=== PATIENT | female | born 1945 | race African-American/Black ===

== ENCOUNTER → 2017-01-12 | Outpatient (CLI) | payer MEDICARE ==
--- NOTE | 2017-01-12 11:36 | FL ---
EXAMINATION TYPE: FL UGI air w esophagus DATE OF EXAM: 01/12/2017 COMPARISON: CT abdomen and pelvis January 01, 2015. Prior esophagram March 08, 2012. HISTORY: Dysphasia increase in severity for 7 months but has been present since gastric sleeve surger y approximately 4 years ago per patient. TECHNIQUE: A single contrast limited UGI study is performed. A total of 8 seconds of fluoroscopic ti me was utilized during procedure. 19 spot images are taken and saved to PACS system. FINDINGS: Nail Puller image of the abdomen shows clips and sutures from gastric sleeve procedure epigastri c region. There is overall nonobstructive bowel gas pattern. The esophagus shows satisfactory motility and emptying into the stomach. Portion of stomach as above diaphragm consistent with hiatal hernia, this correlates with CT. No significant focal stricture note d. There is mild delay in passage from stomach above diaphragm to below diaphragm and through the pro ximal and distal anastomosis of sleeve. Patient remains asymptomatic. No significant reflux is visual ized. No contrast extravasation to suggest leak is seen. The duodenal bulb, sweep, and proximal small bowel loops are unremarkable. IMPRESSION: No leak or significant obstruction. Images are saved for ordering surgeon. Postsurgical imaging was performed at outside institution and is not available for direct comparison.
[2017-01-12 15:05] LABS: Iron Saturation 23.36 (12.00-45.00)
== END | disposition home or self-care (01) ==
LOC: RADFLWHC 09:45
PROVIDERS: ATTEND Surgery
DX: R13.10 Dysphagia, unspecified (principal); E21.1 Secondary hyperparathyroidism, not elsewhere classified; D50.8 Other iron deficiency anemias; E44.0 Moderate protein-calorie malnutrition; E55.9 Vitamin D deficiency, unspecified
CPT/HCPCS: 36415; 74246; 82306; 82607; 82728; 82746; 83540; 83550; 83970; 84134; 84425; 84443; 84590

== ENCOUNTER → 2017-02-09 | Outpatient (CLI) | payer MEDICARE ==
--- NOTE | 2017-02-09 11:44 | FL ---
EXAMINATION TYPE: FL barium swallow w video DATE OF EXAM: 02/09/2017 MODIFIED SWALLOW / DEGLUTITION STUDY CLINICAL HISTORY: Dysphagia. History of gastric sleeve surgery 4 years ago. TECHNIQUE: Deglutition study is performed utilizing thin liquid barium, honey and nectar thick liqui d barium, barium thick applesauce, and barium coated cracker. A total of 64 seconds of fluoroscopic t nelsy was utilized during procedure. 8 cine sequences were acquired. 0 images are saved to PACS. COMPARISON: None. FINDINGS: The oral and pharyngeal phases show satisfactory initiation and propagation with all modali ties tested. Normal mastication is seen with solid modalities tested. There is no evidence of penet ration or aspiration with any modality tested. No significant pharyngeal residue was appreciated. Mi ld mass effect due to mild multilevel spurring and disc space narrowing lower cervical spine along po sterior wall of proximal esophagus is noted during swallowing. IMPRESSION: No penetration or aspiration observed. Please refer to speech therapist notes for furthe r details if necessary.
== END | disposition home or self-care (01) ==
LOC: RADFLMAIN 10:52
PROVIDERS: ATTEND Surgery
DX: R13.10 Dysphagia, unspecified (principal)
CPT/HCPCS: 74230

== ENCOUNTER → 2017-11-16 | Outpatient (CLI) | payer MEDICARE ==
--- NOTE | 2017-11-16 15:06 | BD ---
EXAMINATION TYPE: Axial Bone Density DATE OF EXAM: 11/16/2017 COMPARISON: 03/25/2014 CLINICAL HISTORY: 72-year-old female OA, postmenopausal screening Height: 61.5 IN Weight: 156 LBS FRAX RISK QUESTIONS: Secondary Osteoporosis: 2. Hyperthyroidism: YES 3. Menopause before 45: YES AGE 28 Rheumatoid Arthritis: YES RISK FACTORS HISTORY OF: Active: YES Diet low in dairy products/other sources of calcium: YES Postmenopausal woman: AGE 28 Take estrogen and/or progesterone medications: NOT NOW How long: TOOK CONTROL OFF AND ON FROM AGE [age] MEDICATIONS: Thyroid Medications: YES Which medication: Levothyroxine How Lon+ YEARS Additional Medications: CALCIUM, LEVOTHYROXINE, DAILY VITAMINS EXAM MEASUREMENTS: Bone mineral densitometry was performed using the [employer] System. Bone mineral density as measured about the Lumbar spine is: ----- L1-L4(G/cm2): 1.279 T Score Values are as follows: ----- L2: 1.2 ----- L3: -0.4 ----- L4: 1.6 ----- L1-L4: 0.8 Bone mineral density has: Increased 2.1% since study of: 03/25/2014 Bone mineral density about the R hip (g/cm2): 1.131 Bone mineral density about the L hip (g/cm2): 1.020 T Score values are as follows: -----R Neck: 0.7 -----L Neck: -0.1 -----R Total: -0.4 -----L Total: -0.5 Bone mineral density has: Decreased -8.2% since study of: 03/25/2014 IMPRESSION: Normal (Values between +1 and -1 indicate normal bone mass). Consider repeating this study in 5 year s or sooner if there is some new clinical indication. NOTE: T-SCORE=SD OF THE YOUNG ADULT MEAN.
--- NOTE | 2017-11-18 10:27 | MM ---
Reason for exam: screening (asymptomatic). Last mammogram was performed 2 years and 10 months ago. History: Patient is postmenopausal. Benign MG stereo VAD BX LT of the left breast, December 10, 2013. Physical Findings: A clinical breast exam by your physician is recommended on an annual basis and results should be correlated with mammographic findings. MG 3D Screening Mammo W/Cad Bilateral CC and MLO view(s) were taken. Prior study comparison: January 01, 2015, bilateral MG 3d screening mammo w/cad. December 03, 2013, left breast MG work up mamm w CAD LT. There are scattered fibroglandular densities. ASSESSMENT: Benign, BI-RAD 2 RECOMMENDATION: Routine screening mammogram of both breasts in 1 year.
== END | disposition home or self-care (01) ==
LOC: RADMAMWWP 13:54
PROVIDERS: ATTEND Family Medicine
DX: Z12.31 Encounter for screening mammogram for malignant neoplasm of breast (principal); M19.90 Unspecified osteoarthritis, unspecified site
CPT/HCPCS: 77063; 77067; 77080

== ENCOUNTER → 2020-02-18 | Outpatient (CLI) | payer MEDICARE ==
--- NOTE | 2020-02-19 09:34 | MM ---
Reason for exam: additional evaluation requested from prior study. Last mammogram was performed 2 years and 3 months ago. History: Patient is postmenopausal. Family history of breast cancer in maternal aunt at age 60. Benign MG stereo VAD BX LT of the left breast, December 10, 2013. Physical Findings: Nurse did not find any significant physical abnormalities on exam. MG 3D Diag Mammo W/Cad KADE Bilateral CC and MLO view(s) were taken. Prior study comparison: November 16, 2017, bilateral MG 3d screening mammo w/cad. January 01, 2015, bilateral MG 3d screening mammo w/cad. There are scattered fibroglandular densities. Previous mammotome biopsy in the left breast. No significant new findings when compared with previous films. These results were verbally communicated with the patient and result sheet given to the patient on 02/18/20. ASSESSMENT: Negative, BI-RAD 1 RECOMMENDATION: Routine screening mammogram of both breasts in 1 year. Manage on a clinical basis with regard to bilateral breast tenderness.
== END | disposition home or self-care (01) ==
LOC: RADMAMWWP 14:31
PROVIDERS: ATTEND Family Medicine
DX: R92.8 Other abnormal and inconclusive findings on diagnostic imaging of breast (principal)
CPT/HCPCS: 77066; G0279; 77062

== ENCOUNTER 2020-05-08 08:12 | Emergency (ER) | payer MEDICARE ==
[2020-05-08] MEDS ORDERED: ACETAMINOPHEN TAB 325 MG TAB PO STA (08:37)
[2020-05-08] MEDS ORDERED: ONDANSETRON 4 MG/2 ML VIAL IVP STA (08:37)
--- NOTE | 2020-05-08 08:38 | ED ---
General Adult HPI - General Chief complaint: Shortness of Breath Stated complaint: cough/weak/nausea/sob Time Seen by Provider: 05/08/20 08:21 Source: patient, RN notes reviewed Mode of arrival: ambulatory Limitations: no limitations - History of Present Illness Initial comments: This is a 75-year-old female presents emergency Department chief complaint of shortness breath, cough congestion weakness. Patient states started 3 weeks ago did. Patient states progressively gotten worse. She states she did get some relief when she took some antibiotics prescribed by her PCP. Patient states she's been fully vaccinated for Covid. Patient states that she has no prior lung disease denies any asthma or COPD. Patient states that her cough is productive with sputum. Patient has no abdominal pain states she's had some nausea associated with dizziness and weakness. No point a chest pain or neck pain or neck stiffness. - Related Data Home Medications Medication Instructions Recorded Confirmed Gabapentin [Neurontin] 600 mg PO BID 01/25/17 05/08/20 LORazepam [Ativan] 1 mg PO BID PRN 01/25/17 05/08/20 Levothyroxine Sodium [Tirosint] 75 mcg PO DAILY 01/25/17 05/08/20 Multivitamin with Iron 2 tab PO DAILY 01/25/17 05/08/20 [Multivitamins with Iron] DULoxetine HCL [Cymbalta] 60 mg PO DAILY 05/08/20 05/08/20 Diltiazem Cd [Cardizem Cd] 240 mg PO DAILY 05/08/20 05/08/20 Omeprazole 40 mg PO DAILY 05/08/20 05/08/20 sulfaSALAzine [Sulfasalazine] 500 mg PO BID 05/08/20 05/08/20 Previous Rx's Medication Instructions Recorded Levofloxacin [Levaquin] 500 mg PO DAILY #7 tab 05/08/20 predniSONE 50 mg PO DAILY #3 tab 05/08/20 Allergies Allergy/AdvReac Type Severity Reaction Status Date / Time hydromorphone [From Dilaudid] AdvReac Unknown Verified 05/08/20 09:40 Review of Systems ROS Statement: Those systems with pertinent positive or pertinent negative responses have been documented in the HPI. ROS Other: All systems not noted in ROS Statement are negative. Past Medical History Past Medical History: Fibromyalgia, GERD/Reflux, Hypertension, Osteoarthritis (OA), Thyroid Disorder History of Any Multi-Drug Resistant Organisms: None Reported Past Surgical History: Appendectomy, Bariatric Surgery, Hysterectomy, Orthopedic Surgery Additional Past Surgical History / Comment(s): bilateral knees Past Anesthesia/Blood Transfusion Reactions: No Reported Reaction Past Psychological History: Anxiety, Depression Smoking Status: Never smoker Past Alcohol Use History: Occasional Past Drug Use History: None Reported General Exam Limitations: no limitations General appearance: alert, in no apparent distress Head exam: Present: atraumatic, normocephalic, normal inspection Eye exam: Present: normal appearance, PERRL, EOMI. Absent: scleral icterus, conjunctival injection, periorbital swelling ENT exam: Present: normal exam, normal oropharynx, mucous membranes moist Neck exam: Present: normal inspection, full ROM. Absent: tenderness, meningismus, lymphadenopathy Respiratory exam: Present: rhonchi (Bilateral throughout). Absent: normal lung sounds bilaterally, respiratory distress, wheezes, rales, stridor Cardiovascular Exam: Present: regular rate, normal rhythm, normal heart sounds. Absent: systolic murmur, diastolic murmur, rubs, gallop, clicks Neurological exam: Present: alert, oriented X3, CN II-XII intact, reflexes normal. Absent: motor sensory deficit Skin exam: Present: warm, dry, intact, normal color. Absent: rash Course Vital Signs 05/08/20 05/08/20 05/08/20 08:13 09:30 10:00 Temperature 99.9 F H Pulse Rate 97 76 77 Respiratory 18 17 18 Rate Blood Pressure 147/86 126/78 134/87 O2 Sat by Pulse 95 94 L 96 Oximetry 05/08/20 05/08/20 05/08/20 10:30 11:00 11:58 Temperature 97.9 F Pulse Rate 75 71 Respiratory 19 20 Rate Blood Pressure 152/99 141/72 O2 Sat by Pulse 95 93 L Oximetry EKG Findings - EKG Comments: EKG Findings:: EKG performed at 8:32 normal sinus rhythm with sinus arrhythmia rate of 98 NE 140 QRS 100 QT/QTC 380/474 Medical Decision Making - Medical Decision Making X-ray,covid and labs are unremarkable. Patient has a upper respiratory infection with low-grade temp. Patient be discharged in stable condition. Return parameters were discussed. - Lab Data Result diagrams: 05/08/20 08:33 05/08/20 08:33 Lab Results 05/08/20 05/08/20 05/08/20 Range/Units 08:33 08:33 08:33 WBC 4.0 (3.8-10.6) k/uL RBC 4.53 (3.80-5.40) m/uL Hgb 12.6 (11.4-16.0) gm/dL Hct 40.2 (34.0-46.0) % MCV 88.7 (80.0-100.0) fL MCH 27.7 (25.0-35.0) pg MCHC 31.3 (31.0-37.0) g/dL RDW 14.2 (11.5-15.5) % Plt Count 284 (150-450) k/uL MPV 7.2 Neutrophils % 45 % Lymphocytes % 34 % Monocytes % 8 % Eosinophils % 10 % Basophils % 1 % Neutrophils # 1.8 (1.3-7.7) k/uL Lymphocytes # 1.4 (1.0-4.8) k/uL Monocytes # 0.3 (0-1.0) k/uL Eosinophils # 0.4 (0-0.7) k/uL Basophils # 0.0 (0-0.2) k/uL Hypochromasia Moderate PT 11.2 (9.0-12.0) sec INR 1.1 (<1.2) APTT 25.4 (22.0-30.0) sec D-Dimer 0.58 (<0.60) mg/L FEU Sodium 139 (137-145) mmol/L Potassium 3.6 (3.5-5.1) mmol/L Chloride 106 (98-107) mmol/L Carbon Dioxide 28 (22-30) mmol/L Anion Gap 5 mmol/L BUN 13 (7-17) mg/dL Creatinine 0.94 (0.52-1.04) mg/dL Est GFR (CKD-EPI)AfAm 69 (>60 ml/min/1.73 sqM) Est GFR (CKD-EPI)NonAf 60 (>60 ml/min/1.73 sqM) Glucose 102 H (74-99) mg/dL Plasma Lactic Acid David (0.7-2.0) mmol/L Calcium 9.1 (8.4-10.2) mg/dL Magnesium 2.0 (1.6-2.3) mg/dL Total Bilirubin 0.7 (0.2-1.3) mg/dL AST 23 (14-36) U/L ALT 7 (4-34) U/L Alkaline Phosphatase 96 (38-126) U/L Troponin I (0.000-0.034) ng/mL NT-Pro-B Natriuret Pep pg/mL Total Protein 6.6 (6.3-8.2) g/dL Albumin 3.5 (3.5-5.0) g/dL Urine Color Urine Appearance (Clear) Urine pH (5.0-8.0) Ur Specific [place] (1.001-1.035) Urine Protein (Negative) Urine Glucose (UA) (Negative) Urine Ketones (Negative) Urine Blood (Negative) Urine Nitrite (Negative) Urine Bilirubin (Negative) Urine Urobilinogen (<2.0) mg/dL Ur Leukocyte Esterase (Negative) Urine RBC (0-5) /hpf Urine WBC (0-5) /hpf Ur Squamous Epith Cells (0-4) /hpf Calcium Oxalate Crystal (None) /hpf Urine Mucus (None) /hpf Coronavirus (PCR) (Not Detectd) 05/08/20 05/08/20 05/08/20 Range/Units 08:33 08:33 08:33 WBC (3.8-10.6) k/uL RBC (3.80-5.40) m/uL Hgb (11.4-16.0) gm/dL Hct (34.0-46.0) % MCV (80.0-100.0) fL MCH (25.0-35.0) pg MCHC (31.0-37.0) g/dL RDW (11.5-15.5) % Plt Count (150-450) k/uL MPV Neutrophils % % Lymphocytes % % Monocytes % % Eosinophils % % Basophils % % Neutrophils # (1.3-7.7) k/uL Lymphocytes # (1.0-4.8) k/uL Monocytes # (0-1.0) k/uL Eosinophils # (0-0.7) k/uL Basophils # (0-0.2) k/uL Hypochromasia PT (9.0-12.0) sec INR (<1.2) APTT (22.0-30.0) sec D-Dimer (<0.60) mg/L FEU Sodium (137-145) mmol/L Potassium (3.5-5.1) mmol/L Chloride (98-107) mmol/L Carbon Dioxide (22-30) mmol/L Anion Gap mmol/L BUN (7-17) mg/dL Creatinine (0.52-1.04) mg/dL Est GFR (CKD-EPI)AfAm (>60 ml/min/1.73 sqM) Est GFR (CKD-EPI)NonAf (>60 ml/min/1.73 sqM) Glucose (74-99) mg/dL Plasma Lactic Acid David 1.2 (0.7-2.0) mmol/L Calcium (8.4-10.2) mg/dL Magnesium (1.6-2.3) mg/dL Total Bilirubin (0.2-1.3) mg/dL AST (14-36) U/L ALT (4-34) U/L Alkaline Phosphatase (38-126) U/L Troponin I <0.012 (0.000-0.034) ng/mL NT-Pro-B Natriuret Pep 451 pg/mL Total Protein (6.3-8.2) g/dL Albumin (3.5-5.0) g/dL Urine Color Urine Appearance (Clear) Urine pH (5.0-8.0) Ur Specific [place] (1.001-1.035) Urine Protein (Negative) Urine Glucose (UA) (Negative) Urine Ketones (Negative) Urine Blood (Negative) Urine Nitrite (Negative) Urine Bilirubin (Negative) Urine Urobilinogen (<2.0) mg/dL Ur Leukocyte Esterase (Negative) Urine RBC (0-5) /hpf Urine WBC (0-5) /hpf Ur Squamous Epith Cells (0-4) /hpf Calcium Oxalate Crystal (None) /hpf Urine Mucus (None) /hpf Coronavirus (PCR) (Not Detectd) 05/08/20 05/08/20 Range/Units 08:33 11:33 WBC (3.8-10.6) k/uL RBC (3.80-5.40) m/uL Hgb (11.4-16.0) gm/dL Hct (34.0-46.0) % MCV (80.0-100.0) fL MCH (25.0-35.0) pg MCHC (31.0-37.0) g/dL RDW (11.5-15.5) % Plt Count (150-450) k/uL MPV Neutrophils % % Lymphocytes % % Monocytes % % Eosinophils % % Basophils % % Neutrophils # (1.3-7.7) k/uL Lymphocytes # (1.0-4.8) k/uL Monocytes # (0-1.0) k/uL Eosinophils # (0-0.7) k/uL Basophils # (0-0.2) k/uL Hypochromasia PT (9.0-12.0) sec INR (<1.2) APTT (22.0-30.0) sec D-Dimer (<0.60) mg/L FEU Sodium (137-145) mmol/L Potassium (3.5-5.1) mmol/L Chloride (98-107) mmol/L Carbon Dioxide (22-30) mmol/L Anion Gap mmol/L BUN (7-17) mg/dL Creatinine (0.52-1.04) mg/dL Est GFR (CKD-EPI)AfAm (>60 ml/min/1.73 sqM) Est GFR (CKD-EPI)NonAf (>60 ml/min/1.73 sqM) Glucose (74-99) mg/dL Plasma Lactic Acid David (0.7-2.0) mmol/L Calcium (8.4-10.2) mg/dL Magnesium (1.6-2.3) mg/dL Total Bilirubin (0.2-1.3) mg/dL AST (14-36) U/L ALT (4-34) U/L Alkaline Phosphatase (38-126) U/L Troponin I (0.000-0.034) ng/mL NT-Pro-B Natriuret Pep pg/mL Total Protein (6.3-8.2) g/dL Albumin (3.5-5.0) g/dL Urine Color Yellow Urine Appearance Cloudy H (Clear) Urine pH 6.0 (5.0-8.0) Ur Specific [place] 1.020 (1.001-1.035) Urine Protein Trace H (Negative) Urine Glucose (UA) Negative (Negative) Urine Ketones Negative (Negative) Urine Blood Negative (Negative) Urine Nitrite Negative (Negative) Urine Bilirubin Negative (Negative) Urine Urobilinogen 2.0 (<2.0) mg/dL Ur Leukocyte Esterase Moderate H (Negative) Urine RBC 1 (0-5) /hpf Urine WBC 9 H (0-5) /hpf Ur Squamous Epith Cells 7 H (0-4) /hpf Calcium Oxalate Crystal Occasional H (None) /hpf Urine Mucus Occasional H (None) /hpf Coronavirus (PCR) Not Detected (Not Detectd) Disposition Clinical Impression: Upper respiratory infection, Fever Disposition: HOME SELF-CARE Condition: Stable Instructions (If sedation given, give patient instructions): Upper Respiratory Infection (ED) Additional Instructions: Please return to the Emergency Department if symptoms worsen or any other concerns. Prescriptions: Levofloxacin [Levaquin] 500 mg PO DAILY #7 tab predniSONE 50 mg PO DAILY #3 tab Is patient prescribed a controlled substance at d/c from ED?: No Referrals: Humphrey Mujica DO [Primary Care Provider] - 1-2 days Time of Disposition: 12:25
[2020-05-08 08:58] LABS: Basophils % (A) 1 %; Eosinophils # (A) 0.4 k/uL (0-0.7); Eosinophils % (A) 10 %; HCT 40.2 % (34.0-46.0); HGB 12.6 gm/dL (11.4-16.0); Hypochromasia Moderate; Lymphocytes # (A) 1.4 k/uL (1.0-4.8); Lymphocytes % (A) 34 %; MCH 27.7 pg (25.0-35.0); MCHC 31.3 g/dL (31.0-37.0); MCV 88.7 fL (80.0-100.0); Mean Platelet Volume 7.2; Monocytes # (A) 0.3 k/uL (0-1.0); Monocytes % (A) 8 %; Neutrophils # (A) 1.8 k/uL (1.3-7.7); Neutrophils % (A) 45 %; Platelet Count 284 k/uL (150-450); RBC 4.53 m/uL (3.80-5.40); RDW 14.2 % (11.5-15.5)
[2020-05-08 09:12] LABS: D-Dimer 0.58 mg/L FEU (<0.60); INR 1.1 (<1.2); Partial Thromboplastin Time 25.4 sec (22.0-30.0); Prothrombin Time 11.2 sec (9.0-12.0)
[2020-05-08 09:16] LABS: Albumin 3.5 g/dL (3.5-5.0); Calcium 9.1 mg/dL (8.4-10.2); Potassium 3.6 mmol/L (3.5-5.1); Total Bilirubin 0.7 mg/dL (0.2-1.3); Total Protein 6.6 g/dL (6.3-8.2)
--- NOTE | 2020-05-08 09:51 | XR ---
EXAMINATION TYPE: XR chest 2V DATE OF EXAM: 05/08/2020 COMPARISON: NONE HISTORY: Shortness of breath TECHNIQUE: Frontal and lateral views of the chest are obtained. FINDINGS: Scattered senescent parenchymal changes noted. Hyperinflation compatible with COPD. No evidence for infiltrate. No evidence for atelectasis. Heart size is stable. Mediastinal structures are stable and grossly unremarkable. No evidence for hilar prominence. Degenerative changes dorsal spine. IMPRESSION: 1. No evidence for acute pulmonary disease.
[2020-05-08 12:02] VITALS: TEMP 97.9
[2020-05-08 12:19] LABS: Appearance,Urine Cloudy (Clear); Bilirubin,Urine Negative (Negative); Blood,Urine Negative (Negative); Calcium Oxalate Crystals,Urine Occasional /hpf; Color,Urine Yellow; Glucose,Urine (UA) Negative (Negative); Ketones,Urine Negative (Negative); Leukocyte Esterase,Urine Moderate (Negative); Mucus,Urine Occasional /hpf; Nitrite,Urine Negative (Negative); Protein,Urine Trace (Negative); RBC,Urine 1 /hpf (0-5); Squamous Epithelial Cell,Urine 7 /hpf (0-4); WBC,Urine 9 /hpf (0-5)
[2020-05-08] MEDS ORDERED: methylPREDNISolone SOD SUCCI 125 MG/2 ML VIAL IV STA (12:21)
[2020-05-08 12:45] VITALS: BP 133/56; PULSE 72; RESP 18
== END 2020-05-08 12:50 | disposition home or self-care (01) ==
LOC: EC 08:12
DX: J06.9 Acute upper respiratory infection, unspecified (principal); M79.7 Fibromyalgia; K21.9 Gastro-esophageal reflux disease without esophagitis; I10 Essential (primary) hypertension; M19.90 Unspecified osteoarthritis, unspecified site
CPT/HCPCS: 36415; 93005; 85379; 83880; 80053; 83605; 83735; 84484; 85025; 85610; 85730; 81001; 87635; 71046; 99285; 96374; 96375; J2930; J2405

== ENCOUNTER 2020-05-17 13:35 | Emergency (ER) | payer MEDICARE ==
[2020-05-17 13:45] VITALS: TEMP 99
--- NOTE | 2020-05-17 13:49 | ED ---
General Adult HPI - General Chief complaint: Upper Respiratory Infection Stated complaint: Revisit, Hx Pneumonia Time Seen by Provider: 05/17/20 13:48 Source: patient Mode of arrival: ambulatory Limitations: no limitations - History of Present Illness Initial comments: Patient presents to the ED complaining of having a productive cough and dyspnea for the past month or so. Patient states that she was seen in the ED about a week for these symptoms, and she had a negative Covid test done at that time. Patient states that her cough and dyspnea have improved, but she feels more generally weak. Patient denies having any pain, fever or chills, headache, focal neuro deficit, sore throat, chest pain, hemoptysis, palpitations, dizziness, nausea/vomiting/diarrhea, abdominal pain, dysuria or urinary symptoms, decreased urine output, leg or calf swelling or pain, or any other symptoms or complaints. Patient states that she completed her Covid vaccination series over a month ago. - Related Data Home Medications Medication Instructions Recorded Confirmed Gabapentin [Neurontin] 600 mg PO BID 01/25/17 05/17/20 LORazepam [Ativan] 1 mg PO BID PRN 01/25/17 05/17/20 Levothyroxine Sodium [Tirosint] 75 mcg PO DAILY 01/25/17 05/17/20 Multivitamin with Iron 2 tab PO DAILY 01/25/17 05/17/20 [Multivitamins with Iron] DULoxetine HCL [Cymbalta] 60 mg PO DAILY 05/08/20 05/17/20 Diltiazem Cd [Cardizem Cd] 240 mg PO DAILY 05/08/20 05/17/20 Omeprazole 40 mg PO DAILY 05/08/20 05/17/20 sulfaSALAzine [Sulfasalazine] 500 mg PO BID 05/08/20 05/17/20 Previous Rx's Medication Instructions Recorded Benzonatate [Tessalon Perles] 100 mg PO TID PRN #10 cap 05/17/20 Allergies Allergy/AdvReac Type Severity Reaction Status Date / Time hydromorphone [From Dilaudid] AdvReac Unknown Verified 05/17/20 14:31 Review of Systems ROS Statement: Those systems with pertinent positive or pertinent negative responses have been documented in the HPI. ROS Other: All systems not noted in ROS Statement are negative. Past Medical History Past Medical History: Fibromyalgia, GERD/Reflux, Hypertension, Osteoarthritis (OA), Thyroid Disorder History of Any Multi-Drug Resistant Organisms: None Reported Past Surgical History: Appendectomy, Bariatric Surgery, Hysterectomy, Orthopedic Surgery Additional Past Surgical History / Comment(s): bilateral knees Past Anesthesia/Blood Transfusion Reactions: No Reported Reaction Past Psychological History: Anxiety, Depression Smoking Status: Never smoker Past Alcohol Use History: Occasional Past Drug Use History: None Reported General Exam Limitations: no limitations General appearance: alert, in no apparent distress Head exam: Present: atraumatic, normocephalic Eye exam: Present: normal appearance, EOMI ENT exam: Present: normal oropharynx, mucous membranes moist Neck exam: Present: other (Trachea is in midline) Respiratory exam: Present: normal lung sounds bilaterally. Absent: respiratory distress, wheezes, rales, rhonchi, stridor Cardiovascular Exam: Present: regular rate, normal rhythm, normal heart sounds, other (Normal radial pulses bilaterally) GI/Abdominal exam: Present: soft. Absent: distended, tenderness, guarding Extremities exam: Present: other (Negative Homans sign bilaterally). Absent: tenderness, pedal edema, calf tenderness Neurological exam: Present: alert, oriented X3. Absent: motor sensory deficit Psychiatric exam: Present: normal affect, normal mood Skin exam: Present: warm, dry, intact, normal color Course Vital Signs 05/17/20 05/17/20 05/17/20 13:43 14:05 15:19 Temperature 99 F Pulse Rate 106 H 73 Respiratory 20 16 18 Rate Blood Pressure 125/80 145/93 O2 Sat by Pulse 96 98 Oximetry - Reevaluation(s) Reevaluation #1: 05/17/20 15:35 Patient denies development of any new symptoms while in the ED. Patient's tachycardia has now resolved. Patient remains alert and breathing comfortably with clear breath sounds bilaterally and a normal room air oxygen saturation. Patient is aware of her test results, she feels comfortable going home at this time. Patient was counseled about acute bronchitis, and she was clearly explained return and follow-up instructions. Patient was instructed to have a low threshold for return to the ED should her symptoms worsen. Patient was also instructed to follow up closely with her primary care provider. Patient feels comfortable with this plan. EKG Findings - EKG Comments: EKG Findings:: Sinus tachycardia, ventricular rate of 103 bpm, no ectopy, normal VA and QRS intervals, normal QT interval, moderate voltage criteria for LVH, normal axis, no ST or T-wave abnormality Medical Decision Making - Medical Decision Making Patient is afebrile and without leukocytosis. Patient is breathing comfortably in the ED with a normal room air oxygen saturation. Patient's d-dimer, troponin and BNP are within normal limits. The rest of the patient's labs are also fairly unremarkable. Patient's chest x-ray only shows mild atelectasis and does not show any focal infiltrate. Patient states that she recently completed a course of prednisone and Levaquin. I do not feel that any further antibiotic treatment is indicated. Will provide the patient with a prescription for Tessalon Perles for symptomatic relief of her cough. Patient was instructed to, and agrees to, follow up closely with her primary care provider. Will discharge patient home at this time. - Lab Data Result diagrams: 05/17/20 13:54 05/17/20 13:54 Lab Results 05/17/20 05/17/20 05/17/20 Range/Units 13:54 13:54 13:54 WBC 6.3 (3.8-10.6) k/uL RBC 4.47 (3.80-5.40) m/uL Hgb 12.7 (11.4-16.0) gm/dL Hct 39.8 (34.0-46.0) % MCV 89.0 (80.0-100.0) fL MCH 28.4 (25.0-35.0) pg MCHC 31.9 (31.0-37.0) g/dL RDW 14.3 (11.5-15.5) % Plt Count 256 (150-450) k/uL MPV 7.2 Neutrophils % 65 % Lymphocytes % 21 % Monocytes % 7 % Eosinophils % 5 % Basophils % 1 % Neutrophils # 4.1 (1.3-7.7) k/uL Lymphocytes # 1.3 (1.0-4.8) k/uL Monocytes # 0.4 (0-1.0) k/uL Eosinophils # 0.3 (0-0.7) k/uL Basophils # 0.0 (0-0.2) k/uL Hypochromasia Moderate PT 11.5 (9.0-12.0) sec INR 1.1 (<1.2) APTT 24.6 (22.0-30.0) sec D-Dimer 0.57 (<0.60) mg/L FEU Sodium 136 L (137-145) mmol/L Potassium 4.1 (3.5-5.1) mmol/L Chloride 105 (98-107) mmol/L Carbon Dioxide 29 (22-30) mmol/L Anion Gap 2 mmol/L BUN 17 (7-17) mg/dL Creatinine 1.03 (0.52-1.04) mg/dL Est GFR (CKD-EPI)AfAm 62 (>60 ml/min/1.73 sqM) Est GFR (CKD-EPI)NonAf 53 (>60 ml/min/1.73 sqM) Glucose 91 (74-99) mg/dL Plasma Lactic Acid David (0.7-2.0) mmol/L Calcium 8.7 (8.4-10.2) mg/dL Total Bilirubin 0.6 (0.2-1.3) mg/dL AST 20 (14-36) U/L ALT 6 (4-34) U/L Alkaline Phosphatase 81 (38-126) U/L Troponin I (0.000-0.034) ng/mL NT-Pro-B Natriuret Pep pg/mL Total Protein 5.8 L (6.3-8.2) g/dL Albumin 3.1 L (3.5-5.0) g/dL Coronavirus (PCR) (Not Detectd) 05/17/20 05/17/20 05/17/20 Range/Units 13:54 13:54 13:54 WBC (3.8-10.6) k/uL RBC (3.80-5.40) m/uL Hgb (11.4-16.0) gm/dL Hct (34.0-46.0) % MCV (80.0-100.0) fL MCH (25.0-35.0) pg MCHC (31.0-37.0) g/dL RDW (11.5-15.5) % Plt Count (150-450) k/uL MPV Neutrophils % % Lymphocytes % % Monocytes % % Eosinophils % % Basophils % % Neutrophils # (1.3-7.7) k/uL Lymphocytes # (1.0-4.8) k/uL Monocytes # (0-1.0) k/uL Eosinophils # (0-0.7) k/uL Basophils # (0-0.2) k/uL Hypochromasia PT (9.0-12.0) sec INR (<1.2) APTT (22.0-30.0) sec D-Dimer (<0.60) mg/L FEU Sodium (137-145) mmol/L Potassium (3.5-5.1) mmol/L Chloride (98-107) mmol/L Carbon Dioxide (22-30) mmol/L Anion Gap mmol/L BUN (7-17) mg/dL Creatinine (0.52-1.04) mg/dL Est GFR (CKD-EPI)AfAm (>60 ml/min/1.73 sqM) Est GFR (CKD-EPI)NonAf (>60 ml/min/1.73 sqM) Glucose (74-99) mg/dL Plasma Lactic Acid David 1.0 (0.7-2.0) mmol/L Calcium (8.4-10.2) mg/dL Total Bilirubin (0.2-1.3) mg/dL AST (14-36) U/L ALT (4-34) U/L Alkaline Phosphatase (38-126) U/L Troponin I <0.012 (0.000-0.034) ng/mL NT-Pro-B Natriuret Pep 154 pg/mL Total Protein (6.3-8.2) g/dL Albumin (3.5-5.0) g/dL Coronavirus (PCR) (Not Detectd) 05/17/20 Range/Units 13:54 WBC (3.8-10.6) k/uL RBC (3.80-5.40) m/uL Hgb (11.4-16.0) gm/dL Hct (34.0-46.0) % MCV (80.0-100.0) fL MCH (25.0-35.0) pg MCHC (31.0-37.0) g/dL RDW (11.5-15.5) % Plt Count (150-450) k/uL MPV Neutrophils % % Lymphocytes % % Monocytes % % Eosinophils % % Basophils % % Neutrophils # (1.3-7.7) k/uL Lymphocytes # (1.0-4.8) k/uL Monocytes # (0-1.0) k/uL Eosinophils # (0-0.7) k/uL Basophils # (0-0.2) k/uL Hypochromasia PT (9.0-12.0) sec INR (<1.2) APTT (22.0-30.0) sec D-Dimer (<0.60) mg/L FEU Sodium (137-145) mmol/L Potassium (3.5-5.1) mmol/L Chloride (98-107) mmol/L Carbon Dioxide (22-30) mmol/L Anion Gap mmol/L BUN (7-17) mg/dL Creatinine (0.52-1.04) mg/dL Est GFR (CKD-EPI)AfAm (>60 ml/min/1.73 sqM) Est GFR (CKD-EPI)NonAf (>60 ml/min/1.73 sqM) Glucose (74-99) mg/dL Plasma Lactic Acid David (0.7-2.0) mmol/L Calcium (8.4-10.2) mg/dL Total Bilirubin (0.2-1.3) mg/dL AST (14-36) U/L ALT (4-34) U/L Alkaline Phosphatase (38-126) U/L Troponin I (0.000-0.034) ng/mL NT-Pro-B Natriuret Pep pg/mL Total Protein (6.3-8.2) g/dL Albumin (3.5-5.0) g/dL Coronavirus (PCR) Not Detected (Not Detectd) - Radiology Data Radiology results: report reviewed (Chest x-ray: Mild subsegmental atelectasis on the left side improved compared to old exam, normal heart) Disposition Clinical Impression: Acute bronchitis Disposition: HOME SELF-CARE Condition: Stable Instructions (If sedation given, give patient instructions): Acute Bronchitis (ED) Additional Instructions: Return to the ER immediately should you develop increased shortness of breath, a high fever, chest pain, feeling dizzy or faint, or new or worsening symptoms. Follow up closely with your primary care provider. Prescriptions: Benzonatate [Tessalon Perles] 100 mg PO TID PRN #10 cap PRN Reason: Cough Is patient prescribed a controlled substance at d/c from ED?: No Referrals: Humphrey Mujica DO [Primary Care Provider] - 1-2 days Time of Disposition: 15:39
[2020-05-17 14:41] LABS: Basophils % (A) 1 %; Eosinophils # (A) 0.3 k/uL (0-0.7); Eosinophils % (A) 5 %; HCT 39.8 % (34.0-46.0); HGB 12.7 gm/dL (11.4-16.0); Hypochromasia Moderate; Lymphocytes # (A) 1.3 k/uL (1.0-4.8); Lymphocytes % (A) 21 %; MCH 28.4 pg (25.0-35.0); MCHC 31.9 g/dL (31.0-37.0); Mean Platelet Volume 7.2; Monocytes # (A) 0.4 k/uL (0-1.0); Monocytes % (A) 7 %; Neutrophils # (A) 4.1 k/uL (1.3-7.7); Neutrophils % (A) 65 %; Platelet Count 256 k/uL (150-450); RBC 4.47 m/uL (3.80-5.40); RDW 14.3 % (11.5-15.5); WBC 6.3 k/uL (3.8-10.6)
--- NOTE | 2020-05-17 14:46 | XR ---
EXAMINATION TYPE: XR chest 2V DATE OF EXAM: 05/17/2020 COMPARISON: 05/08/2020 HISTORY: Difficulty breathing TECHNIQUE: FINDINGS: There is small linear density left midlung field. There is no heart failure nor confluent p neumonic infiltrate. Costophrenic angles are clear. The bony thorax is intact. IMPRESSION: Mild subsegmental atelectasis on the left side improved compared to old exam. Normal hear t.
[2020-05-17 14:56] LABS: D-Dimer 0.57 mg/L FEU (<0.60); INR 1.1 (<1.2); Partial Thromboplastin Time 24.6 sec (22.0-30.0); Prothrombin Time 11.5 sec (9.0-12.0)
[2020-05-17 14:59] LABS: Albumin 3.1 g/dL (3.5-5.0); Calcium 8.7 mg/dL (8.4-10.2); Potassium 4.1 mmol/L (3.5-5.1); Total Bilirubin 0.6 mg/dL (0.2-1.3); Total Protein 5.8 g/dL (6.3-8.2)
[2020-05-17 15:22] VITALS: BP 145/93; PULSE 73; RESP 18
== END 2020-05-17 16:08 | disposition home or self-care (01) ==
LOC: EC 13:35
DX: J20.9 Acute bronchitis, unspecified (principal); R53.1 Weakness; I10 Essential (primary) hypertension; K21.9 Gastro-esophageal reflux disease without esophagitis; F41.9 Anxiety disorder, unspecified; F32.9 Major depressive disorder, single episode, unspecified; M79.7 Fibromyalgia; M19.90 Unspecified osteoarthritis, unspecified site; Z20.822 Contact with and (suspected) exposure to COVID-19; Z79.899 Other long term (current) drug therapy
CPT/HCPCS: 36415; 71046; 80053; 83605; 83880; 84484; 85025; 85379; 85610; 85730; 87635; 93005; 99285

== ENCOUNTER → 2020-05-27 | Outpatient (CLI) | payer MEDICARE ==
--- NOTE | 2020-05-27 14:45 | XR ---
EXAMINATION TYPE: XR chest 2V DATE OF EXAM: 05/27/2020 COMPARISON: 05/17/2020 HISTORY: 75 year-old female acute bronchitis, cough TECHNIQUE: Frontal and lateral views FINDINGS: Heart normal size. Aorta within normal limits. Large appearance to the main right pulmonary artery on the lateral view and corresponding hilar prominence on the frontal view. No consolidation or pleural effusion. Some strandy atelectasis or scarring at the left base. IMPRESSION: Correlate for underlying pulmonary arterial hypertension in this patient. No definite acute process o therwise seen.
== END | disposition home or self-care (01) ==
LOC: RADXRMAIN 11:44
PROVIDERS: ATTEND Family Medicine
DX: J20.9 Acute bronchitis, unspecified (principal)
CPT/HCPCS: 71046

== ENCOUNTER → 2020-07-16 | Outpatient (CLI) | payer MEDICARE ==
--- NOTE | 2020-08-14 11:03 | EM ---
This is a 14 day event monitor. Patient wore the monitor for only one day. Baseline EKG showed sinus rhythm. No arrhythmias are detected. Final impression: #1. One day report only. #2. Sinus rhythm. #3. No arrhythmias noted. #4. Patient did not report any symptoms. MTDD
== END | disposition home or self-care (01) ==
LOC: RADECHMAIN 11:56
PROVIDERS: ATTEND Family Medicine
DX: R07.9 Chest pain, unspecified (principal)
CPT/HCPCS: 93270

== ENCOUNTER 2021-02-14 15:33 | Emergency (ER) | payer MEDICARE ==
[2021-02-14 16:50] VITALS: BP 147/90; PULSE 85; RESP 20; TEMP 98.7
--- NOTE | 2021-02-14 16:56 | ED ---
General Adult HPI - General Chief complaint: Upper Respiratory Infection Stated complaint: cough,chills,nausea, covid exposure Time Seen by Provider: 02/14/21 16:53 Source: patient, RN notes reviewed Mode of arrival: ambulatory Limitations: no limitations - History of Present Illness Initial comments: 75-year-old female presents emergency Department with chief complaint of cough congestion fever or chills. Patient states that she had some nausea. Symptoms started on Tuesday. Patient states that her family members tested positive for covid 19. States that they are or runny children Claudy. Patient states that she's had prior COVID-19 vaccine. Patient offers no complaints. He states she's had some mild shortness breath no chest pain mild headache no neck pain or neck stiffness. - Related Data Home Medications Medication Instructions Recorded Confirmed Gabapentin [Neurontin] 600 mg PO BID 01/25/17 05/17/20 LORazepam [Ativan] 1 mg PO BID PRN 01/25/17 05/17/20 Levothyroxine Sodium [Tirosint] 75 mcg PO DAILY 01/25/17 05/17/20 Multivitamin with Iron 2 tab PO DAILY 01/25/17 05/17/20 [Multivitamins with Iron] DULoxetine HCL [Cymbalta] 60 mg PO DAILY 05/08/20 05/17/20 Diltiazem Cd [Cardizem Cd] 240 mg PO DAILY 05/08/20 05/17/20 Omeprazole 40 mg PO DAILY 05/08/20 05/17/20 sulfaSALAzine [Sulfasalazine] 500 mg PO BID 05/08/20 05/17/20 Previous Rx's Medication Instructions Recorded Benzonatate [Tessalon Perles] 100 mg PO TID PRN #10 cap 05/17/20 Allergies Allergy/AdvReac Type Severity Reaction Status Date / Time hydromorphone [From Dilaudid] AdvReac Unknown Verified 02/14/21 16:49 Review of Systems ROS Statement: Those systems with pertinent positive or pertinent negative responses have been documented in the HPI. ROS Other: All systems not noted in ROS Statement are negative. Past Medical History Past Medical History: Fibromyalgia, GERD/Reflux, Hypertension, Osteoarthritis (OA), Thyroid Disorder History of Any Multi-Drug Resistant Organisms: None Reported Past Surgical History: Appendectomy, Bariatric Surgery, Hysterectomy, Orthopedic Surgery Additional Past Surgical History / Comment(s): bilateral knees Past Anesthesia/Blood Transfusion Reactions: No Reported Reaction Past Psychological History: Anxiety, Depression Smoking Status: Never smoker Past Alcohol Use History: Occasional Past Drug Use History: None Reported General Exam Limitations: no limitations General appearance: alert, in no apparent distress Head exam: Present: atraumatic, normocephalic, normal inspection Eye exam: Present: normal appearance, PERRL, EOMI. Absent: scleral icterus, conjunctival injection, periorbital swelling ENT exam: Present: normal exam, normal oropharynx, mucous membranes moist Neck exam: Present: normal inspection, full ROM. Absent: tenderness, meningismus, lymphadenopathy Respiratory exam: Present: normal lung sounds bilaterally. Absent: respiratory distress, wheezes, rales, rhonchi, stridor Cardiovascular Exam: Present: regular rate, normal rhythm, normal heart sounds. Absent: systolic murmur, diastolic murmur, rubs, gallop, clicks GI/Abdominal exam: Present: soft, normal bowel sounds. Absent: distended, tenderness, guarding, rebound, rigid Course Vital Signs 02/14/21 16:44 Temperature 98.7 F Pulse Rate 85 Respiratory 20 Rate Blood Pressure 147/90 O2 Sat by Pulse 97 Oximetry Medical Decision Making - Medical Decision Making X-rays negative, COVID-19 is negative. Patient discharged in stable condition patient most likely has underlying viral infection return parameters were discussed. - Lab Data Lab Results 02/14/21 Range/Units 16:50 Coronavirus (PCR) Not Detected (Not Detectd) Disposition Clinical Impression: Viral infection Disposition: HOME SELF-CARE Condition: Stable Instructions (If sedation given, give patient instructions): Viral Syndrome (ED) Additional Instructions: Please return to the Emergency Department if symptoms worsen or any other concerns. Is patient prescribed a controlled substance at d/c from ED?: No Referrals: Humphrey Mujica DO [Primary Care Provider] - 1-2 days Time of Disposition: 17:44
--- NOTE | 2021-02-14 17:13 | XR ---
EXAMINATION TYPE: XR chest 2V DATE OF EXAM: 02/14/2021 COMPARISON: 05/27/2020 HISTORY: Cough TECHNIQUE: 2 views FINDINGS: Heart is normal. Lungs are clear of infiltrate. There is no heart failure. There are no hil ar masses. Bony thorax is intact IMPRESSION: No active cardiopulmonary disease. No change.
== END 2021-02-14 18:05 | disposition home or self-care (01) ==
LOC: EC 15:33
DX: B34.9 Viral infection, unspecified (principal); M79.7 Fibromyalgia; K21.9 Gastro-esophageal reflux disease without esophagitis; I10 Essential (primary) hypertension; M19.90 Unspecified osteoarthritis, unspecified site; E07.9 Disorder of thyroid, unspecified; F41.9 Anxiety disorder, unspecified; F32.A Depression, unspecified; Z20.822 Contact with and (suspected) exposure to COVID-19; Z88.5 Allergy status to narcotic agent; Z90.49 Acquired absence of other specified parts of digestive tract; Z98.84 Bariatric surgery status; Z90.710 Acquired absence of both cervix and uterus
CPT/HCPCS: 71046; 87635; 99285

== ENCOUNTER → 2021-04-06 | Outpatient (CLI) | payer MEDICARE ==
--- NOTE | 2021-04-08 09:07 | MM ---
Reason for exam: screening (asymptomatic). Last mammogram was performed 1 year and 2 months ago. History: Patient is postmenopausal. Family history of breast cancer in maternal aunt at age 60. Benign MG stereo VAD BX LT of the left breast, December 10, 2013. Physical Findings: A clinical breast exam by your physician is recommended on an annual basis and results should be correlated with mammographic findings. MG 3D Screening Mammo W/Cad Bilateral CC and MLO view(s) were taken. Prior study comparison: February 18, 2020, bilateral MG 3d diag mammo w/cad KADE. November 16, 2017, bilateral MG 3d screening mammo w/cad. There are scattered fibroglandular densities. Finding: There are increased, fine, grouped/clustered calcifications in the upper outer quadrant, middle position of the left breast. Previous mammotome biopsy in the left breast. New finding since February 18, 2020 and November 16, 2017. ASSESSMENT: Incomplete: need additional imaging evaluation, BI-RAD 0 RECOMMENDATION: Special view mammogram of the left breast. [facility] will attempt to contact patient to return for supplemental views.
== END | disposition home or self-care (01) ==
LOC: RADMAMWWP 13:31
PROVIDERS: ATTEND Family Medicine
DX: Z12.31 Encounter for screening mammogram for malignant neoplasm of breast (principal); Z78.0 Asymptomatic menopausal state; Z80.3 Family history of malignant neoplasm of breast
CPT/HCPCS: 77063; 77067

== ENCOUNTER → 2021-04-13 | Outpatient (CLI) | payer MEDICARE ==
--- NOTE | 2021-04-14 08:34 | MM ---
Reason for exam: additional evaluation requested from abnormal screening. Last mammogram was performed less than 1 month ago. History: Patient is postmenopausal. Family history of breast cancer in maternal aunt at age 60. Benign MG stereo VAD BX LT of the left breast, December 10, 2013. Physical Findings: Nurse did not find any significant physical abnormalities on exam. MG 3D Work Up W/Cad LT CC with magnification, ML with magnification, and ML view(s) were taken of the left breast. Prior study comparison: April 06, 2021, bilateral MG 3d screening mammo w/cad. February 18, 2020, bilateral MG 3d diag mammo w/cad KADE. There are scattered fibroglandular densities. Finding: There are increased, coarse heterogeneous, grouped/clustered, segmental calcifications in the upper outer quadrant, middle position of the left breast. New finding since April 06, 2021 and February 18, 2020. These results were verbally communicated with the patient and result sheet given to the patient on 04/13/21. ASSESSMENT: Suspicious, BI-RAD 4 RECOMMENDATION: Stereotactic core biopsy of the left breast. Called Dr. Mujica's office with mammographic findings and has scheduled an appointment for the patient for 06/04/21 at 8:[address] Laura. Biopsy scheduled for 05/11/21 at 8:00. PRELIMINARY REPORT CALLED AND FAXED TO DR. LAURA ON 04/13/21.
== END | disposition home or self-care (01) ==
LOC: RADMAMWWP 13:33
PROVIDERS: ATTEND Family Medicine
DX: R92.8 Other abnormal and inconclusive findings on diagnostic imaging of breast (principal); Z78.0 Asymptomatic menopausal state; Z80.3 Family history of malignant neoplasm of breast
CPT/HCPCS: 77065; G0279; 77061

== ENCOUNTER → 2021-05-11 | Day surgery (SDC) | payer MEDICARE ==
[2021-05-11 07:27] VITALS: RESP 16
[2021-05-11 08:42] VITALS: BP 146/77; PULSE 74; TEMP 98.1
--- NOTE | 2021-05-11 19:21 | MM ---
EXAMINATION TYPE: MG stereo VAD BX LT DATE OF EXAM: 05/11/2021 COMPARISON: 04/06/2021 and 04/13/2021 CLINICAL HISTORY: 76-year-old female R92.8, referred for stereotactic biopsy of left breast microcalcifications. TECHNIQUE: Stereotactic guided core biopsy of the left breast. FINDINGS: The procedure of stereotactic guided core biopsy was explained to the patient. Benefits, alternatives, and risks were discussed. An informed consent was then obtained. [facility]. Shortness pathway was a CC from above approach. I performed the localization followed by the remainder of the procedure. A vacuum assisted biopsy gun was used to obtain 6 core samples. The patient tolerated the procedure well without any immediate complication. The patient was kept in the radiology department for short stay after the procedure and then discharged home in stable condition. Targeted calcifications are identified in specimen mammogram. Post biopsy mammogram shows the clip, suspected 1 cm superior migration. IMPRESSION: SUCCESSFUL, UNCOMPLICATED STEREOTACTIC GUIDED CORE BIOPSY OF 12:00 LEFT BREAST MICROCALCIFICATIONS. 1 CM OF SUPERIOR CLIP MIGRATION. FULL PATHOLOGY RESULTS TO FOLLOW. Pathology Results: Benign LEFT BREAST, 1:00, STEREOTACTIC CORE BIOPSY: Fibroadenomatoid hyperplasia with calcifications and background fibrocystic changes. Recommendation Follow up mammogram of the left breast in 6 months. ISID
== END ==
LOC: RADMAMWWP 07:04
PROVIDERS: ATTEND Surgery
DX: R92.8 Other abnormal and inconclusive findings on diagnostic imaging of breast (principal); N62 Hypertrophy of breast; R92.1 Mammographic calcification found on diagnostic imaging of breast; N60.12 Diffuse cystic mastopathy of left breast; Z88.5 Allergy status to narcotic agent
CPT/HCPCS: 88305; 19081; A4648; J2001

== ENCOUNTER 2021-12-30 11:39 | Day surgery (SDC) | payer MEDICARE ==
[~2021-12-30 11:39] MED LIST: LACTATED RINGERS 1,000 ML IV SCH; LIDOCAINE 1% (10MG/ML) FOR IV START INTRADERMA PRN
[2021-12-30] MEDS ORDERED: LACTATED RINGERS 1,000 ML IV ONE (12:15)
[2021-12-30] MEDS ORDERED: PROPOFOL 10 MG/ML 20 ML VIAL IV ONE (12:52)
--- NOTE | 2021-12-30 13:24 | P.PCN ---
Date of Procedure: 12/30/21 Procedure(s) Performed: BRIEF HISTORY: Patient is a 76-year-old pleasant female scheduled for an elective colonoscopy as a part of lower abdominal pain and chronic diarrhea for the last several months duration. PROCEDURE PERFORMED: Colonoscopy with random biopsy. PREOPERATIVE DIAGNOSIS: Lower abdominal pain and chronic diarrhea. IV sedation per Anesthesia. PROCEDURE: After informed consent was obtained, the patient, was brought into the endoscopy unit. IV sedation was administered by Anesthesia under continuous monitoring. Digital rectal examination was normal. Initially the Olympus CF-160 flexible video colonoscope was then inserted in the rectum, gradually advanced into the cecum without any difficulty. Careful examination was performed as the scope was gradually being withdrawn. Ileocecal valve and the appendiceal orifice were visualized and appeared normal. Prep was excellent. Mucosa of the cecum, ascending colon, transverse colon, descending colon, sigmoid colon, and rectum appeared normal. Random biopsies were done from ascending and descending colon to rule out microscopic/collagenous colitis. Scattered sigmoid diverticulosis seen. Retroflexion was performed in the rectum and no lesions were seen. The patient tolerated the procedure well. IMPRESSION: Normal-appearing colon from rectum to cecum with no evidence of colorectal neoplasia. Scattered sigmoid diverticulosis. RECOMMENDATIONS: Findings of this examination were discussed with the patient as her family. She was advised to follow with the biopsy results. She'll be seen in office in 3-4 weeks
[2021-12-30 13:44] VITALS: BP 151/82; PULSE 60; RESP 16
== END 2021-12-30 14:15 | disposition home or self-care (01) ==
LOC: ORWHC2ENDO 11:39
PROVIDERS: ATTEND Internal Medicine Gastroenterology
DX: K57.30 Diverticulosis of large intestine without perforation or abscess without bleeding (principal); I10 Essential (primary) hypertension; E78.5 Hyperlipidemia, unspecified; E07.9 Disorder of thyroid, unspecified; F32.A Depression, unspecified; K21.9 Gastro-esophageal reflux disease without esophagitis; Z79.899 Other long term (current) drug therapy; Z79.890 Hormone replacement therapy; Z88.5 Allergy status to narcotic agent
CPT/HCPCS: 88305; 88313; 45380; J2704

== ENCOUNTER → 2022-05-03 | Outpatient (CLI) | payer MEDICARE ==
[2022-05-03 18:17] LABS: HCT 39.5 % (37.2-46.3); HGB 11.6 g/dL (12.0-15.0); MCH 29.1 pg (27.0-32.0); MCHC 29.4 g/dL (32.0-37.0); MCV 99.2 fL (80.0-97.0); Mean Platelet Volume 9.9 fL (9.5-12.2); NRBC Per 100 WBC 0 /100 WBCS (0.0-0.0); Platelet Count 247 X 10*3/uL (140-440); RBC 3.98 X 10*6/uL (4.10-5.20); RDW 12.4 % (11.5-14.5); WBC 2.39 X 10*3/uL (4.50-10.00)
[2022-05-03 19:14] LABS: ALT 12 U/L (8-44); AST 16 U/L (13-35); African American GFR (CKD) 57.3 (60.0-200.0); Albumin 3.7 g/dL (3.8-4.9); Albumin/Globulin Ratio 1.62 (1.60-3.17); Alkaline Phosphatase 68 U/L (41-126); BUN/Creat Ratio 13.98 Ratio (12.00-20.00); Blood Urea Nitrogen 15.1 mg/dL (9.0-27.0); Calcium 9.4 mg/dL (8.7-10.3); Carbon Dioxide 32.5 mmol/L (20.0-27.5); Chloride 107 mmol/L (96-109); Chol/HDL Ratio 2.57 Ratio; Globulin 2.3 g/dL (1.6-3.3); Glucose 79 mg/dL (70-110); LDL Cholesterol,Calculated 105.3 mg/dL (0.0-131.0); Magnesium 2.3 mg/dL (1.5-2.4); Non-African American GFR(CKD) 49.5 (60.0-200.0); Potassium 4.5 mmol/L (3.5-5.5); Sodium 144 mmol/L (135-145); VLDL Calculation 13.08 mg/dL (5.00-40.00)
[2022-05-03 19:33] LABS: Protein, Total 6.3 g/dL (6.2-8.2)
[2022-05-03 19:46] LABS: Vitamin B12 >3600.0 pg/mL (200.0-944.0)
[2022-05-03 20:07] LABS: Basophils # (A) 0.04 X 10*3/uL (0.00-0.10); Basophils % (A) 1.7 %; Eosinophils % (A) 4.2 %; Immature Grans, Automated 0.8 %; Lymphocytes # (A) 0.97 X 10*3/uL (0.90-5.00); Lymphocytes % (A) 40.6 %; Monocytes # (A) 0.29 X 10*3/uL (0.20-1.00); Monocytes % (A) 12.1 %; Neutrophils # (A) 0.97 X 10*3/uL (1.80-7.70); Neutrophils % (A) 40.6 %
[2022-05-04 12:40] LABS: Zinc, Serum 70 ug/dL (60-130)
[2022-05-04 23:46] LABS: Albumin 3.53 g/dL (3.80-4.90); Gamma Globulin 1.01 g/dL (0.70-1.50)
[2022-05-05 10:15] LABS: Vit B1(Thiamine) 63 ug/L (38-122)
== END | disposition home or self-care (01) ==
LOC: LABWHC1 11:13
PROVIDERS: ATTEND Family Medicine
DX: Z00.01 Encounter for general adult medical examination with abnormal findings (principal); N18.30 Chronic kidney disease, stage 3 unspecified; R97.8 Other abnormal tumor markers; K58.2 Mixed irritable bowel syndrome; E53.8 Deficiency of other specified B group vitamins; E55.9 Vitamin D deficiency, unspecified; E63.9 Nutritional deficiency, unspecified
CPT/HCPCS: 36415; 80053; 80061; 82306; 82607; 83735; 83883; 83970; 84165; 84255; 84425; 84439; 84443; 84590; 84630; 85025; 86334

== ENCOUNTER → 2023-02-21 | Outpatient (CLI) | payer MEDICARE ==
[2023-02-22 02:00] LABS: Basophils # (A) 0.02 X 10*3/uL (0.00-0.10); Basophils % (A) 0.7 %; Eosinophils # (A) 0.18 X 10*3/uL (0.04-0.35); Eosinophils % (A) 6.3 %; HCT 40.8 % (37.2-46.3); HGB 12.2 g/dL (12.0-15.0); Lymphocytes # (A) 0.83 X 10*3/uL (0.90-5.00); MCH 28.8 pg (27.0-32.0); MCHC 29.9 g/dL (32.0-37.0); MCV 96.5 FL (80.0-97.0); Mean Platelet Volume 10.3 FL (9.5-12.2); Monocytes # (A) 0.37 X 10*3/uL (0.20-1.00); Monocytes % (A) 12.9 %; NRBC Per 100 WBC 0 X 10*3/uL (0.00-0.01); Neutrophils # (A) 1.45 X 10*3/uL (1.80-7.70); Neutrophils % (A) 50.8 %; Platelet Count 223 X 10*3/uL (140-440); RBC 4.23 X 10*6/uL (4.10-5.20); RDW 12.4 % (11.5-14.5); WBC 2.86 X 10*3/uL (4.50-10.00)
[2023-02-22 05:22] LABS: % Iron Saturation 27.18 (12.00-45.00); ALT 9 U/L (8-44); AST 17 U/L (13-35); Albumin 3.6 g/dL (3.8-4.9); Alkaline Phosphatase 74 U/L (41-126); BUN/Creat Ratio 13.17 Ratio (12.00-20.00); Blood Urea Nitrogen 15.8 mg/dL (9.0-27.0); Calcium 9.3 mg/dL (8.7-10.3); Carbon Dioxide 25.1 mmol/L (21.6-31.8); Chloride 107 mmol/L (96-109); Chol/HDL Ratio 2.37 Ratio; Glucose 81 mg/dL (70-110); Iron 81 UG/DL (50-170); LDL Cholesterol,Calculated 91.7 mg/dL (0.0-131.0); Potassium 4.2 mmol/L (3.5-5.5); Sodium 142 mmol/L (135-145); Total Bilirubin 0.3 mg/dL (0.3-1.2); Total Iron Binding Capacity 298 UG/DL (228-460); Total Protein 5.6 g/dL (6.2-8.2); VLDL Calculation 12.82 mg/dL (5.00-40.00)
[2023-02-22 05:52] LABS: Vitamin B12 >3600.0 pg/mL (200.0-944.0)
[2023-02-22 14:16] LABS: Free Kappa Lt Chain Qnt, Serum 2.93 mg/dL (0.33-1.94); Free Lambda Lt Chain Qnt, Seru 2.35 mg/dL (0.57-2.63)
[2023-02-23 06:28] LABS: Vitamin A 48 ug/dL (38-106)
[2023-02-23 08:51] LABS: Vit B1(Thiamine) 75 ug/L (38-122)
== END | disposition home or self-care (01) ==
LOC: LABWHC1 13:01
PROVIDERS: ATTEND Family Medicine
DX: I12.9 Hypertensive chronic kidney disease with stage 1 through stage 4 chronic kidney disease, or unspecified chronic kidney disease (principal); D50.9 Iron deficiency anemia, unspecified; K58.2 Mixed irritable bowel syndrome; E03.9 Hypothyroidism, unspecified; E64.9 Sequelae of unspecified nutritional deficiency; D51.9 Vitamin B12 deficiency anemia, unspecified; E55.9 Vitamin D deficiency, unspecified; N18.30 Chronic kidney disease, stage 3 unspecified; R97.8 Other abnormal tumor markers; Z98.84 Bariatric surgery status
CPT/HCPCS: 36415; 80053; 80061; 82306; 82607; 83540; 83550; 83735; 83883; 84166; 84425; 84439; 84443; 84590; 84630; 85025; 86334

== ENCOUNTER → 2023-09-26 | Outpatient (CLI) | payer MEDICARE | END | disposition home or self-care (01) | LOC: LABWHC1 23:16 | PROVIDERS: ATTEND Family Medicine | DX: E03.9 Hypothyroidism, unspecified (principal); E64.9 Sequelae of unspecified nutritional deficiency; D72.819 Decreased white blood cell count, unspecified; R97.8 Other abnormal tumor markers | CPT/HCPCS: 36415; 80053; 80061; 83883; 84165; 84439; 84443; 84590; 85025; 86334 ==

== ENCOUNTER → 2024-02-16 | Outpatient (CLI) | payer MEDICARE ==
--- NOTE | 2024-02-16 21:05 | MR ---
EXAMINATION TYPE: MR brain wo/w con DATE OF EXAM: 02/16/2024 8:02 PM COMPARISON: None. CLINICAL INDICATION: Female, 78 years old with history of R25.2 CRAMP AND SPASM M54.12 RADICULOPATHY, CERVIC; PHH, Cramping and numbness in hands and feet TECHNIQUE: Multi planar, multi sequence imaging was performed through the brain including: T1, T2, In version recovery, susceptibility weighted imaging and gradient echo imaging and Diffusion weighted im aging. The patient was then given intravenous contrast and multi planar, T1 fat-saturation images wer e obtained. IV Contrast: 5.5 mL Gadobutrol FINDINGS: The faulkner-white junctions, ventricular system, basal cisterns appear unremarkable. Diffusion-weighted imaging shows no evidence of restricted diffusion to suggest acute/subacute infarct. Intracranial ar terial flow voids are maintained. Midline structures show no abnormality. The susceptibility weighted images demonstrate blooming artifact foci in the posterior left frontal lobe compatible with microhe morrhage.. After administration of gadolinium, no abnormal enhancement is seen. The bone marrow signal is within normal limits. Paranasal sinuses and mastoid air cells: No significant paranasal sinus disease. Visualized orbits: Orbital contents are intact. IMPRESSION: No evidence of intracranial mass, acute/subacute infarct, or abnormal enhancement. [facility], , 02/16/2024 9:02 PM
--- NOTE | 2024-02-16 21:08 | MR ---
EXAMINATION TYPE: MR cervical spine wo con DATE OF EXAM: 02/16/2024 8:01 PM COMPARISON: None. CLINICAL INDICATION: Female, 78 years old with history of R25.2 CRAMP AND SPASM M54.12 RADICULOPATHY, CERVIC, Cramping and numbness in both hands and feet, pain in neck, Radiculopathy, TECHNIQUE: Multi planar, multi sequence imaging was performed utilizing: T1-weighted, T2-weighted, an d turbo inversion recovery imaging of the cervical spine. IV Contrast: mL (None, if empty) FINDINGS: Alignment: The cervical vertebral bodies have preserved heights. Alignment is within normal limits gi tyson patient positioning. Bones: Bone signal is within normal limits. No abnormal bone marrow edema on inversion recovery seque nces. Cord: The spinal cord is unremarkable with regards to their signal intensity and morphology. Discs: Intervertebral disc signal is maintained. C2-C3: No significant disc pathology. The spinal canal is patent. No neural foraminal stenosis. C3-C4: No significant disc pathology. The spinal canal is patent. No neural foraminal stenosis. C4-C5: No significant disc pathology. The spinal canal is patent. Bilateral facet and uncovertebral joint arthropathy are present with mild bilateral neural foraminal stenosis. C5-C6: No significant disc pathology. The spinal canal is patent. No neural foraminal stenosis. C6-C7: No significant disc pathology. The spinal canal is patent. No neural foraminal stenosis. C7-T1: No significant disc pathology. The spinal canal is patent. No neural foraminal stenosis. Other: None. IMPRESSION: 1. No evidence for disc herniation or significant spinal canal stenosis. 2. Mild disc degeneration with associated osteoarthritic changes. [facility], , 02/16/2024 9:05 PM
== END | disposition home or self-care (01) ==
LOC: RADMRIMAIN 18:42
PROVIDERS: ATTEND Family Medicine
DX: M50.10 Cervical disc disorder with radiculopathy, unspecified cervical region (principal); M47.22 Other spondylosis with radiculopathy, cervical region; R25.2 Cramp and spasm; R20.0 Anesthesia of skin
CPT/HCPCS: 70553; 72141; A9585

== ENCOUNTER → 2024-05-11 | Outpatient (CLI) | payer MEDICARE ==
[2024-05-11 14:30] LABS: African American GFR (CKD) 65 (>60 ml/min/1.73 sqM); Blood Urea Nitrogen 17 mg/dL (7-17); Non-African American GFR(CKD) 56 (>60 ml/min/1.73 sqM)
--- NOTE | 2024-05-11 15:53 | CT ---
EXAMINATION TYPE: CT angio head neck DATE OF EXAM: 05/11/2024 3:26 PM COMPARISON: 02/16/2024.. CLINICAL INDICATION: Female, 79 years old with history of R20.2 PARESTHESIA OF SKIN; PHH, Paresthesia of skin, hx of lupus TECHNIQUE: Noncontrast CT head with sagittal and coronal reformats with bone window imaging.. Axially acquired h elical CT angiogram of the head and neck was obtained with contrast. Axial images are supplemented wi th 3D reconstructions and MIP images which were post-processed at an independent workstation. NASCET criteria used. Contrast used:65 mL of Isovue 370 without and with IV Contrast, Oral contrast used: None. CT DLP: combined 1076.9 mGycm, Automated exposure control for dose reduction was used. FINDINGS: Extra-axial spaces: No abnormal extra-axial fluid collections. Ventricular system: Within normal limits Cerebral parenchyma: No acute intraparenchymal hemorrhage or mass effect. The faulkner-white junction is well differentiated. Cerebellum: Unremarkable. Mass effect: No evidence of midline shift. Intracranial vasculature: Atherosclerotic calcifications of the intracranial vessels. Soft tissues: Normal. Calvarium/osseous structures: No depressed skull fracture. Paranasal sinuses and mastoid air cells: Clear. Visualized orbits: Bilateral aphakia CTA HEAD: No evidence of acute intracranial hemorrhage, mass effect, or midline shift. The ventricles, sulci, a nd cisterns are unremarkable. Vertebral arteries: The vertebral arteries are patent. Vertebral artery dominance: Left Basilar artery: The basilar artery is intact. The basilar artery bifurcation is normal. Internal Carotid arteries: The cervical, petrous, cavernous and supraclinoid segments are normal. MARTHA: Patent with no evidence of aneurysm. ACOM: Present without evidence of aneurysm. MCA: Patent with no evidence of aneurysm. [employer] REP: origin on the left. Patent with no evidence of aneurysm. PCOM: Normal right origin left. Hypoplastic bilaterally. Dural sinuses: Patent. CTA NECK: Right Carotid System: The common carotid artery and external carotid artery are patent. The carotid bifurcation demonstrate s no evidence of hemodynamically significant stenosis. The remaining portions of the internal carotid artery demonstrate normal size without significant narrowing. Left Carotid System: The common carotid artery and external carotid artery are patent. The carotid bifurcation demonstrate s no evidence of hemodynamically significant stenosis. The remaining portions of the internal carotid artery demonstrate normal size without significant narrowing. Vertebral arteries are patent without evidence hemodynamically significant stenosis. Left dominant, s maller caliber right. There is a 2 vessel aortic arch. The origins of the great vessels are patent. No evidence of hemodyna mically significant stenosis. Upper thorax: Mild to moderate emphysema changes. IMPRESSION: 1. No evidence of dissection of the cervical internal carotid arteries or vertebral arteries. 2. No any evidence of significant stenosis at the carotid bifurcations. 3. No evidence of intracranial high-grade stenosis or intracranial aneurysm. 4. Mild emphysema. [facility], , 05/11/2024 3:51 PM
[2024-05-11 20:17] LABS: Calcium 9.1 mg/dL (8.7-10.3)
[2024-05-11 21:28] LABS: Cardiolipin Ab IgG Interp Negative (Negative); Cardiolipin Ab IgM Interp Negative (Negative); Cardiolipin IgA Antibody 48.3 U/mL; Cardiolipin IgM Antibody <1.5 U/mL
== END | disposition home or self-care (01) ==
LOC: RADCTMAIN 13:24
PROVIDERS: ATTEND Psychiatry & Neurology Neurology
DX: Z13.89 Encounter for screening for other disorder (principal); J43.9 Emphysema, unspecified; R20.2 Paresthesia of skin; G62.9 Polyneuropathy, unspecified
CPT/HCPCS: 85302; 85305; 85301; 82607; 82310; 82565; 84520; 85730; 85613; 82306; 85300; 81241; 86147; 83036; 70496; 70498; 36415; Q9967